=== PATIENT | female | born 1960 | race Two or more races ===

== ENCOUNTER 2018-11-20 22:11 | Emergency (ER) | payer OTHER ==
[~2018-11-20] VITALS: Ht 160 cm; Wt 108.9 kg
[2018-11-20 22:15] VITALS: Ht 160 cm; Wt 108.9 kg
[2018-11-21 00:51] VITALS: BP 147/45
== END 2018-11-21 00:51 | disposition home or self-care (01) ==
LOC: ED 22:11
DX: S83.91XA Sprain of unspecified site of right knee, initial encounter (principal); M17.11 Unilateral primary osteoarthritis, right knee; I10 Essential (primary) hypertension; E11.9 Type 2 diabetes mellitus without complications; X58.XXXA Exposure to other specified factors, initial encounter; Y93.89 Activity, other specified; Y92.89 Other specified places as the place of occurrence of the external cause; Y99.8 Other external cause status
CPT/HCPCS: J1885; Q0092